=== PATIENT | male | born 1975 | race African-American/Black ===

== ENCOUNTER 2017-05-07 10:47 | Emergency (ER) | payer SELFPAY ==
[2017-05-07 10:54] VITALS: BMI 34.2
[2017-05-07] MEDS ORDERED: ASPIRIN 81 MG CHEWTAB ONE ×2 (10:59→11:29)
--- NOTE | 2017-05-07 11:24 | DR.GENAD ---
HPI - PCP Primary Care Physician: Tone - HPI Comment HPI Comment: PATIENT SAID TODAY EPISODE WAS ASSOCIATED WITH SLIGHT SOB AND WEAKNESS. NO FEVER. NO COUGH OR DYSURIA. - Complaint/Symptoms Chief Complaint Doctors Comments: INTERMITTENT SUBSTERNAL PRESSURE 7/10 TIMES ONE WEEK. Chief Complaint:: "For a while now I have been having some chest discomfort. Probably a week now it has been happening. I don't know if it is sharp like pressure, it's just uncomfortable." Self Treatment fo Chief Complaint: Patient took x2 81 asa - Nurses notes reviewed Nurses Notes Review: Yes - Source History Provided: Patient, Family Member - Mode of Arrival Mode of Arrival: Ambulatory - Timing Onset of Chief Complaint: 04/30/17 Came on: Suddenly - Duration Duration: Intermittent Duration: Days - Severity Severity: Moderate PMH - PMH Past Medical History: Yes Past Medical History: Hypertension Past Surgical History: Yes Surgical History: Ortho Surgery Past Surgical History Comment: Right knee - Family History History of Family Medical Conditions: Yes Family Medical History: Diabetes Mellitus, Cancer, [place], Heart Failure, Hypertension - Social History Does patient currently use any type of tobacco product: No Have you used tobacco products in the last 12 months: No Type of Tobacco Use: None Does any household member use tobacco: No Alcohol Use: Occasionally Do you use any recreational Drugs:: No Lives With: Family Lives Where: Home - infectious screening In the last 2 months have you had wt loss of >10#?: NO Have you had fever, night sweats or hemotysis?: No Have you traveled outside the country in the last 6 months?: No Isolation: Standard ROS - Review of Systems Constitutional: Weakness, Fatigue. negative: Chills, Fever Eyes: No Symptoms Reported. negative: Eye Pain, Discharge ENTM: negative: Ear Discharge, Nose Discharge, Nose Congestion, Throat Pain Respiratoy: Short of Breath. negative: Productive Cough, Non-Productive Cough, Wheezing, Hemoptysis Cardiovascular: Chest Pain Gastrointestinal/Abdominal: No Symptoms Reported. negative: Abdominal Pain, Diarrhea, Nausea, Vomiting Genitourinary: No Symptoms Reported. negative: Dysuria, Frequency, Hematuria Neurological: Weakness. negative: Headache, Dizziness Musculoskeletal: No Symptoms Reported Integumentary: No Symptoms Reported Hematologic/Lymphatic: No Symptoms Reported Endocrine: No Symptoms Reported All Other Systems: Reviewed and Negative PE - Vital Signs Vitals: Temperature 97.3 F Pulse Rate [Left Brachial] 58 Pulse Rate 64 Respiratory Rate 18 Blood Pressure [Left Arm] 168/95 Blood Pressure 135/99 O2 Sat by Pulse Oximetry 100 - General Limitations: No Limitations General Appearance: Alert - Head Head Exam: Normal Inspection - Eyes Eye exam: Normal Appearance - ENT ENT Exam: Normal External Ear Exam External Ear Exam: Normal External Inspection TM/Canal Exam: Bilateral Normal Nose Exam: Normal Nose Exam Mouth Exam: Normal Inspection Throat Exam: Normal Inspection - Neck Neck Exam: Normal Inspection - Chest Chest Inspection: Normal Inspection - Respiratory Respiratory Exam: Normal Lung Sounds Bilat Respiratory Exam: Bilateral Clear to Auscultation - Cardiovascular Cardiovascular Exam: Regular Rate, Normal Rhythm, Normal Heart Sounds - Abdominal Exam Abdominal Exam: Normal Bowel Sounds, Soft. negative: Tenderness - Extremities Extremities Exam: Normal Inspection - Back Back Exam: Normal Inspection - Neurologic Neurological Exam: Alert, Oriented X3 - Psychiatric Psychiatric Exam: Normal Affect, Normal Mood - Skin Skin Exam: Normal Color MDM - Differential Diagnosis Differential Diagnosis: CHEST PAIN Course - Treatment Treatment: SEE ORDERS - Education/Counseling Education/Counseling: Patient, Education Educated On: Treatment, Diagnosis, Needs for Follow Up ROR - Labs Reviewed Laboratory Results Reviewed?: Yes Result Diagrams: 05/07/17 11:30 05/07/17 11:30 Laboratory: WBC 5.4 X10^3/uL (3.6-10.0) 05/07/17 11:30 RBC 4.86 X10^6/uL (4.7-6.0) 05/07/17 11:30 Hgb 15.0 g/dL (13.5-18.0) 05/07/17 11:30 Hct 43.5 % (42.0-54.0) 05/07/17 11:30 MCV 89.6 fL (80.0-100.0) 05/07/17 11:30 MCH 30.8 pg (27.0-34.0) 05/07/17 11:30 MCHC 34.4 g/dL (33.0-35.0) 05/07/17 11:30 RDW 12.9 % (11.6-16.5) 05/07/17 11:30 Plt Count 166 X10^3/uL (150.0-450.0) 05/07/17 11:30 MPV 9.1 fL (7.4-11.0) 05/07/17 11:30 Neut % 54.4 % (42.0-75.0) 05/07/17 11:30 Lymph % 29.5 % (21.0-51.0) 05/07/17 11:30 [place] % 11.7 % (0.0-13.0) 05/07/17 11:30 Eos % 3.5 % (0.9-2.9) H 05/07/17 11:30 Baso % 0.9 % (0.2-1.0) 05/07/17 11:30 Neut # 2.9 x10^3/uL (2.2-4.8) 05/07/17 11:30 Lymph # 1.6 X10^3/uL (1.3-2.9) 05/07/17 11:30 [place] # 0.6 x10^3/uL (0.3-0.8) 05/07/17 11:30 Eos # 0.2 x10^3/uL (0.0-0.2) 05/07/17 11:30 Baso # 0.1 X10^3/uL (0.0-0.1) 05/07/17 11:30 Absolute Nucleated RBC 0.0 /100WBC 05/07/17 11:30 INR Target Range - 05/07/17 11:30 INR 1.05 (0.8-1.3) 05/07/17 11:30 PTT 27.7 SECONDS (22.9-36.5) 05/07/17 11:30 PTT Comment - 05/07/17 11:30 D-Dimer < 100 ng/mL (0-400) 05/07/17 11:30 Sodium 140 mmol/L (136-145) 05/07/17 11:30 Corrected Sodium TNP 05/07/17 11:30 Potassium 3.6 mmol/L (3.5-5.1) 05/07/17 11:30 Chloride 105 mmol/L (98-107) 05/07/17 11:30 Carbon Dioxide 28.1 mmol/L (21-32) 05/07/17 11:30 BUN 12 mg/dL (7-18) 05/07/17 11:30 Creatinine 1.23 mg/dL (0.70-1.30) 05/07/17 11:30 Est GFR (MDRD) Af Amer > 60 (>60) 05/07/17 11:30 Est GFR (MDRD) Non-Af > 60 (>60) 05/07/17 11:30 Glucose 94 mg/dL (65-99) 05/07/17 11:30 Calcium 8.2 mg/dL (8.5-10.1) L 05/07/17 11:30 Corrected Calcium 8.8 mg/dL (8.5-10.1) 05/07/17 11:30 Total Bilirubin 0.60 mg/dL (0.2-1.0) 05/07/17 11:30 AST 22 Units/L (15-37) 05/07/17 11:30 ALT 27 Units/L (12-78) 05/07/17 11:30 Alkaline Phosphatase 76 Units/L (46-116) 05/07/17 11:30 Creatine Kinase 394 Units/L (39-308) H 05/07/17 11:30 CK-MB (CK-2) 2.3 ng/mL (0-4.0) 05/07/17 11:30 CK/CKMB % Calc 0.6 % (<4) 05/07/17 11:30 Troponin I < 0.02 ng/mL (0-1.5) 05/07/17 11:30 Total Protein 6.6 g/dL (6.4-8.2) 05/07/17 11:30 Albumin 3.3 g/dL (3.4-5.0) L 05/07/17 11:30 Globulin 3.3 g/dL (2.5-4.5) 05/07/17 11:30 Albumin/Globulin Ratio 1.0 Ratio (1.1-2.1) L 05/07/17 11:30 Triglycerides 49 mg/dL (0-150) 05/07/17 11:30 Cholesterol 174 mg/dL (0-200) 05/07/17 11:30 LDL Cholesterol, Calc 124 mg/dL (0-100) H 05/07/17 11:30 HDL Cholesterol 40 mg/dL (40-60) 05/07/17 11:30 Cholesterol/HDL Ratio 4.4 (0.0-5.0) 05/07/17 11:30 Amylase 60 Units/L (25-115) 05/07/17 11:30 Lipase 159 Units/L (73-393) 05/07/17 11:30 H. pylori IgG Antibody Positive (NEGATIVE) A 05/07/17 11:30 - XRAY XRAY Findings: REPORT DISCUSS WITH PATIENT. - EKG Rhythm: NSR (EKG NOTED) - Diagnosis Discharge Problem: Chest pain Qualifiers: Chest pain type: precordial pain Qualified Code(s): R07.2 - Precordial pain HTN (hypertension) Qualifiers: Hypertension type: essential hypertension Qualified Code(s): I10 - Essential ( primary) hypertension - Discharge Plan Disposition: 01 HOME, SELF-CARE Condition: Stable Prescriptions: Lansoprazole/Amoxiciln/Clarith [PrevPac 14-day pack] 1 dose PO BID #1 pkg - Follow ups/Referrals Follow ups/Referrals: Timi Wayne [Primary Care Provider] - 05/08/17 - Instructions Instructions: Helicobacter Pylori Antibodies Test, Chest Pain Observation Additional Instructions: RETURN TO ED IF WORSE.
[2017-05-07] MEDS ORDERED: NITROSTAT SL PRN (11:27)
[2017-05-07] MEDS ORDERED: ASPIRIN 81 MG CHEWTAB PO ONE (11:27)
[2017-05-07 11:54] LABS: BASOPHILS # (AUTO) 0.1 X10^3/uL (0.0-0.1); BASOPHILS % (AUTO) 0.9 % (0.2-1.0); EOSINOPHILS # (AUTO) 0.2 x10^3/uL (0.0-0.2); EOSINOPHILS % (AUTO) 3.5 % (0.9-2.9); HEMATOCRIT 43.5 % (42.0-54.0); LYMPHOCYTES # (AUTO) 1.6 X10^3/uL (1.3-2.9); LYMPHOCYTES % (AUTO) 29.5 % (21.0-51.0); MEAN CORPUSCULAR HEMOGLOBIN 30.8 pg (27.0-34.0); MEAN CORPUSCULAR HGB CONC 34.4 g/dL (33.0-35.0); MEAN CORPUSCULAR VOLUME 89.6 fL (80.0-100.0); MEAN PLATELET VOLUME 9.1 fL (7.4-11.0); MONOCYTES # (AUTO) 0.6 x10^3/uL (0.3-0.8); MONOCYTES % (AUTO) 11.7 % (0.0-13.0); NEUTROPHILS # (AUTO) 2.9 x10^3/uL (2.2-4.8); NEUTROPHILS % (AUTO) 54.4 % (42.0-75.0); PLATELET COUNT 166 X10^3/uL (150.0-450.0); RED BLOOD COUNT 4.86 X10^6/uL (4.7-6.0); RED CELL DISTRIBUTION WIDTH 12.9 % (11.6-16.5); WHITE BLOOD COUNT 5.4 X10^3/uL (3.6-10.0)
[2017-05-07 12:16] LABS: ALANINE AMINOTRANSFERASE 27 Units/L (12-78); ALBUMIN 3.3 g/dL (3.4-5.0); ALKALINE PHOSPHATASE 76 Units/L (46-116); AMYLASE 60 Units/L (25-115); ASPARTATE AMINO TRANSFERASE 22 Units/L (15-37); BLOOD UREA NITROGEN 12 mg/dL (7-18); CALCIUM 8.2 mg/dL (8.5-10.1); CARBON DIOXIDE 28.1 mmol/L (21-32); CHLORIDE 105 mmol/L (98-107); CHOL/HDL RATIO 4.4 (0.0-5.0); CHOLESTEROL 174 mg/dL (0-200); CKMB % 0.6 % (<4); COR CA(FOR HYPOALB) 8.8 mg/dL (8.5-10.1); CREATINE KINASE 394 Units/L (39-308); CREATINE KINASE MB 2.3 ng/mL (0-4.0); CREATININE 1.23 mg/dL (0.70-1.30); HDL CHOLESTEROL 40 mg/dL (40-60); LIPASE 159 Units/L (73-393); SODIUM 140 mmol/L (136-145); TOTAL PROTEIN 6.6 g/dL (6.4-8.2); TRIGLYCERIDES 49 mg/dL (0-150); TROPONIN I < 0.02 ng/mL (0-1.5); eGFR BLACK RACES > 60 (>60); eGFR NON BLACK RACES > 60 (>60)
--- NOTE | 2017-05-07 12:48 | RAD ---
HISTORY: Subacute chest discomfort Study: Single-view chest Comparison: None Findings: The trachea is midline. The cardiac silhouette is borderline enlarged when considering the AP techni que. The lungs are clear without focal mass or consolidation. There is no effusion or pneumothorax. The bony thorax is grossly unremarkable. IMPRESSION: Borderline cardiomegaly without acute cardiopulmonary disease otherwise noted. Reported By:
[2017-05-07] MEDS ORDERED: ZESTRIL TAB 20 MG PO ONE (13:27)
[2017-05-07] MEDS ORDERED: HYDROCHLOROTHIAZIDE 12.5 MG CAP PO ONE (13:28)
[2017-05-07] MEDS ORDERED: ZESTRIL TAB 20 MG ONE (13:34)
[2017-05-07 14:09] VITALS: BP 168/95
== END 2017-05-07 14:10 | disposition home or self-care (01) ==
LOC: ER 10:57
DX: R07.2 Precordial pain (principal); I10 Essential (primary) hypertension
CPT/HCPCS: 36415; 71010; 80053; 80061; 82150; 82550; 82553; 83690; 84484; 85025; 85378; 85610; 85730; 86677; 93005; 93010; 99283; A4222